=== PATIENT | female | born 1970 | race Caucasian/White ===

== ENCOUNTER → 2022-08-23 | Outpatient (CLI) | LOC: M SOG 08:18 | PROVIDERS: ATTEND Orthopaedic Surgery Hand Surgery | DX: G56.03 Carpal tunnel syndrome, bilateral upper limbs (principal) ==

== ENCOUNTER → 2023-03-23 | Outpatient (REF) | payer OTHER ==
[~2023-03-23] MED LIST: ACET-910 PO; ALBU90AE IH; AMLO1TAB25 PO; CHEL50TA2 PO; CITRTAB18 PO; DAND525C PO; HYDR-3490 PO; IBUP80TA PO; MAGN200T PO; MILK500C PO; MOME13HF8 IN; PROBCAP14 PO; RA V400C PO; VITA500C17 PO; vitamin b1 PO
== END ==
LOC: M SFHCRHEU 10:47
PROVIDERS: ATTEND Internal Medicine Rheumatology
DX: M05.79 Rheumatoid arthritis with rheumatoid factor of multiple sites without organ or systems involvement (principal); R76.8 Other specified abnormal immunological findings in serum; Z79.899 Other long term (current) drug therapy; Z22.7 Latent tuberculosis; Z53.9 Procedure and treatment not carried out, unspecified reason

== ENCOUNTER → 2023-05-04 | Outpatient (REF) | payer OTHER | LOC: M SFHCRHEU 16:51 | PROVIDERS: ATTEND Internal Medicine Rheumatology | DX: Z53.9 Procedure and treatment not carried out, unspecified reason (principal); M05.79 Rheumatoid arthritis with rheumatoid factor of multiple sites without organ or systems involvement; R76.8 Other specified abnormal immunological findings in serum; Z79.899 Other long term (current) drug therapy; Z22.7 Latent tuberculosis ==

== ENCOUNTER → 2023-05-29 | Outpatient (CLI) | payer OTHER | LOC: M PLAIMG 08:42 | PROVIDERS: ATTEND Internal Medicine Infectious Disease | DX: R76.11 Nonspecific reaction to tuberculin skin test without active tuberculosis (principal); M05.79 Rheumatoid arthritis with rheumatoid factor of multiple sites without organ or systems involvement | CPT/HCPCS: 36415; 71046; 86480; G0463 ==

== ENCOUNTER → 2023-07-27 | Outpatient (CLI) | payer OTHER ==
[2023-07-27 09:35] LABS: BASO # 0.1 10^3/uL (0.0-0.2); BASO % 0.7 % (0.0-1.0); EOS # 0.1 10^3/uL (0.0-0.5); HEMATOCRIT 38.5 % (36.0-47.0); HEMOGLOBIN 12.4 g/dl (12.0-15.5); LYMPH # 2.8 10^3/uL (1.5-5.0); LYMPH % 20.4 % (24.0-44.0); MEAN CORPUSCULAR HEMOGLOBIN 27.7 pg (27.0-33.0); MEAN CORPUSCULAR HGB CONC 32.2 g/dl (32.0-36.5); MEAN CORPUSCULAR VOLUME 85.9 fl (80.0-96.0); MONO # 0.9 10^3/uL (0.0-0.8); MONO % 6.8 % (2.0-8.0); NEUTROPHILS # 9.5 10^3/uL (1.5-8.5); NEUTROPHILS % 70.7 % (36.0-66.0); PLATELET COUNT, AUTOMATED 408 10^3/uL (150-450); RED BLOOD COUNT 4.48 10^6/uL (4.00-5.40); WHITE BLOOD COUNT 13.5 10^3/uL (4.0-10.0)
[2023-07-27 09:44] LABS: ERYTHROCYTE SEDIMENTATION RATE 33 mm/hr (0-30)
[2023-07-27 10:04] LABS: ALBUMIN 3.8 G/DL (3.2-5.2); ALKALINE PHOSPHATASE 83 U/L (46-116); ALT/SGPT 20 U/L (7.0-40); AST/SGOT 17 U/L (<34); BILIRUBIN,TOTAL 0.8 MG/DL (0.3-1.2); BLOOD UREA NITROGEN 16 MG/DL (9-23); CALCIUM LEVEL 9.5 MG/DL (8.5-10.1); CARBON DIOXIDE LEVEL 28 MMOL/L (20-31); CHLORIDE LEVEL 107 MMOL/L (98-107); CREATININE FOR GFR 0.65 MG/DL (0.55-1.30); GLOMERULAR FILTRATION RATE > 60.0 (>51); GLUCOSE, FASTING 90 MG/DL (60-100); POTASSIUM SERUM 3.9 MMOL/L (3.5-5.1); SODIUM LEVEL 142 MMOL/L (136-145); TOTAL PROTEIN 6.7 G/DL (5.7-8.2)
== END ==
LOC: M PLALAB 08:30
PROVIDERS: ATTEND Internal Medicine Rheumatology
DX: M05.79 Rheumatoid arthritis with rheumatoid factor of multiple sites without organ or systems involvement (principal); R76.8 Other specified abnormal immunological findings in serum; Z79.899 Other long term (current) drug therapy; Z22.7 Latent tuberculosis

== ENCOUNTER → 2023-08-21 | Outpatient (CLI) | payer OTHER | LOC: M WHC 07:23 | PROVIDERS: ATTEND Family Medicine | DX: Z12.31 Encounter for screening mammogram for malignant neoplasm of breast (principal) ==

== ENCOUNTER → 2023-09-01 | Outpatient (CLI) | payer OTHER ==
[2023-09-01 11:11] LABS: BASO # 0.1 10^3/uL (0.0-0.2); BASO % 0.8 % (0.0-1.0); EOS # 0.2 10^3/uL (0.0-0.5); EOS % 1.9 % (0.0-3.0); HEMATOCRIT 38.4 % (36.0-47.0); HEMOGLOBIN 12.4 g/dl (12.0-15.5); LYMPH % 37.5 % (24.0-44.0); MEAN CORPUSCULAR HEMOGLOBIN 27.5 pg (27.0-33.0); MEAN CORPUSCULAR HGB CONC 32.3 g/dl (32.0-36.5); MEAN CORPUSCULAR VOLUME 85.1 fl (80.0-96.0); MONO # 0.9 10^3/uL (0.0-0.8); MONO % 8.2 % (2.0-8.0); NEUTROPHILS # 5.5 10^3/uL (1.5-8.5); NEUTROPHILS % 51.3 % (36.0-66.0); PLATELET COUNT, AUTOMATED 419 10^3/uL (150-450); RED BLOOD COUNT 4.51 10^6/uL (4.00-5.40); WHITE BLOOD COUNT 10.6 10^3/uL (4.0-10.0)
[2023-09-01 11:38] LABS: ERYTHROCYTE SEDIMENTATION RATE 27 mm/hr (0-30)
[2023-09-01 11:45] LABS: ALKALINE PHOSPHATASE 85 U/L (46-116); ALT/SGPT 20 U/L (7.0-40); AST/SGOT 13 U/L (<34); BILIRUBIN,TOTAL 1.1 MG/DL (0.3-1.2); BLOOD UREA NITROGEN 19 MG/DL (9-23); CALCIUM LEVEL 9.3 MG/DL (8.5-10.1); CARBON DIOXIDE LEVEL 29 MMOL/L (20-31); CHLORIDE LEVEL 104 MMOL/L (98-107); CREATININE FOR GFR 0.62 MG/DL (0.55-1.30); GLOMERULAR FILTRATION RATE > 60.0 (>51); GLUCOSE, FASTING 83 MG/DL (60-100); POTASSIUM SERUM 4.3 MMOL/L (3.5-5.1); SODIUM LEVEL 138 MMOL/L (136-145); TOTAL PROTEIN 6.8 G/DL (5.7-8.2)
== END ==
LOC: M PLALAB 08:36
PROVIDERS: ATTEND Internal Medicine Rheumatology
DX: M05.79 Rheumatoid arthritis with rheumatoid factor of multiple sites without organ or systems involvement (principal); R76.8 Other specified abnormal immunological findings in serum; Z22.7 Latent tuberculosis; Z79.899 Other long term (current) drug therapy

== ENCOUNTER 2023-09-21 07:10 | Outpatient (CLI) | payer OTHER ==
[~2023-09-21] VITALS: Ht 162.6 cm; Wt 114.5 kg
[2023-09-21] VITALS (8 sets, daily range): BP systolic 119–176; BP diastolic 53–82; TEMP 97.2–98.4; O2SAT 96–100
[~2023-09-21 07:10] MED LIST changes: +ALBUTEROL SULFATE 2.5MG/0.5ML INH NEB SOLN INH PRN; +EPINEPHrine INJ 1 MG/ML 1ML AMP IM PRN; +diphenhydrAMINE 50MG/ML VIAL IV PRN; +methylPREDNISolone 125MG 2ML VIAL IV PRN
[2023-09-21] MEDS: ACETAMINOPHEN 650MG PO PRIOR TO INFUSION PO ONE (08:22)
[2023-09-21] MEDS: diphenhydrAMINE 50MG PO PRIOR TO INFUSION PO ONE (08:22)
[2023-09-21] MEDS: inFLIXimab INJECTION 400 MG in NS 210 ML IV ONE (08:53)
== END 2023-09-21 11:10 ==
LOC: M INFU 07:10
PROVIDERS: ATTEND Internal Medicine Rheumatology
DX: M05.79 Rheumatoid arthritis with rheumatoid factor of multiple sites without organ or systems involvement (principal); Z91.041 Radiographic dye allergy status; Z88.5 Allergy status to narcotic agent; Z88.8 Allergy status to other drugs, medicaments and biological substances
CPT/HCPCS: 96413; 96415; J1745

== ENCOUNTER 2023-10-05 10:20 | Outpatient (CLI) | payer OTHER ==
[~2023-10-05] VITALS: Ht 165.1 cm; Wt 115.5 kg
[2023-10-05 10:25] VITALS: BP 140/88; O2SAT 100
[2023-10-05] MEDS: ACETAMINOPHEN 650MG ER TAB (TYLENOL ARTHRITIS) PO ONE (10:31)
[2023-10-05] MEDS: diphenhydrAMINE 50MG PO PRIOR TO INFUSION PO ONE (10:31)
[2023-10-05] MEDS: inFLIXimab INJECTION 400 MG in NS 210 ML IV ONE (11:17)
[2023-10-05 11:35] VITALS: BP 118/82; O2SAT 97
[2023-10-05 11:50] VITALS: BP 116/78; O2SAT 98
[2023-10-05 12:05] VITALS: BP 122/62; O2SAT 100
[2023-10-05 12:50] VITALS: BP 118/64; O2SAT 99
[2023-10-05 13:17] VITALS: BP 110/60; TEMP 98.3; O2SAT 98
== END 2023-10-05 13:27 | disposition home or self-care (01) ==
LOC: M INFU 10:20
PROVIDERS: ATTEND Internal Medicine Rheumatology
DX: M05.79 Rheumatoid arthritis with rheumatoid factor of multiple sites without organ or systems involvement (principal); Z88.8 Allergy status to other drugs, medicaments and biological substances; Z88.5 Allergy status to narcotic agent; Z91.041 Radiographic dye allergy status
CPT/HCPCS: 96413; 96415; J1745

== ENCOUNTER 2023-11-02 10:05 | Outpatient (CLI) | payer OTHER ==
[~2023-11-02] VITALS: Ht 165.1 cm; Wt 116.2 kg
[2023-11-02 10:05] VITALS: BP 112/74; O2SAT 98
[2023-11-02] MEDS: ACETAMINOPHEN 650MG ER TAB (TYLENOL ARTHRITIS) PO ONE (10:24)
[2023-11-02] MEDS: diphenhydrAMINE 50MG PO PRIOR TO INFUSION PO ONE (10:24)
[2023-11-02] MEDS ORDERED: LEUC25TA2 PO (10:30)
[2023-11-02] MEDS ORDERED: METH2.5T48 PO (10:32)
[2023-11-02] MEDS: inFLIXimab INJECTION 400 MG in NS 210 ML IV ONE (10:55)
[2023-11-02 11:30] VITALS: BP 110/64; O2SAT 100
[2023-11-02 12:00] VITALS: BP 117/63; O2SAT 99
[2023-11-02 12:32] VITALS: BP 120/76; O2SAT 99
[2023-11-02 13:00] VITALS: BP 133/63; O2SAT 99
== END 2023-11-02 13:00 ==
LOC: M INFU 10:05
PROVIDERS: ATTEND Internal Medicine Rheumatology
DX: M05.79 Rheumatoid arthritis with rheumatoid factor of multiple sites without organ or systems involvement (principal); Z88.5 Allergy status to narcotic agent; Z88.8 Allergy status to other drugs, medicaments and biological substances; Z91.041 Radiographic dye allergy status
CPT/HCPCS: 96413; 96415; J1745

== ENCOUNTER 2023-11-24 10:12 | Day surgery (SDC) | payer OTHER ==
[~2023-11-24] VITALS: Ht 165.1 cm; Wt 114.6 kg
[~2023-11-24 10:12] MED LIST changes: -ALBUTEROL SULFATE 2.5MG/0.5ML INH NEB SOLN INH PRN; -EPINEPHrine INJ 1 MG/ML 1ML AMP IM PRN; +INFL10VL IV; +LEUC25TA2 PO; +LISI10TA24 PO; +METH2.5T48 PO; +VITA100T28 PO; -diphenhydrAMINE 50MG/ML VIAL IV PRN; -methylPREDNISolone 125MG 2ML VIAL IV PRN
[2023-11-24] MEDS: LIDOCAINE W/EPINEPHRINE 1% 20ML VIAL XX ONE (11:04)
[2023-11-24] MEDS: SODIUM BICARBONATE 8.4% INJ 50MEQ 50ML VIAL XX ONE (11:04)
[2023-11-24 13:12] VITALS: BP 153/72; TEMP 97.4; O2SAT 100
== END 2023-11-24 13:18 | disposition home or self-care (01) ==
LOC: M SDC 10:12
PROVIDERS: ATTEND Orthopaedic Surgery Hand Surgery
DX: G56.02 Carpal tunnel syndrome, left upper limb (principal); Z91.040 Latex allergy status; Z91.041 Radiographic dye allergy status; Z88.5 Allergy status to narcotic agent; Z88.8 Allergy status to other drugs, medicaments and biological substances

== ENCOUNTER → 2023-12-05 | Outpatient (CLI) | payer OTHER ==
[2023-12-05 14:10] LABS: BASO # 0.1 10^3/uL (0.0-0.2); BASO % 1.8 % (0.0-1.0); EOS # 0.4 10^3/uL (0.0-0.5); EOS % 4.7 % (0.0-3.0); HEMATOCRIT 37.2 % (36.0-47.0); HEMOGLOBIN 12.3 g/dl (12.0-15.5); LYMPH # 3.6 10^3/uL (1.5-5.0); LYMPH % 45.8 % (24.0-44.0); MEAN CORPUSCULAR HEMOGLOBIN 28.7 pg (27.0-33.0); MEAN CORPUSCULAR HGB CONC 33.1 g/dl (32.0-36.5); MEAN CORPUSCULAR VOLUME 86.7 fl (80.0-96.0); MONO # 0.9 10^3/uL (0.0-0.8); NEUTROPHILS # 2.9 10^3/uL (1.5-8.5); NEUTROPHILS % 36.6 % (36.0-66.0); PLATELET COUNT, AUTOMATED 341 10^3/uL (150-450); RED BLOOD COUNT 4.29 10^6/uL (4.00-5.40); WHITE BLOOD COUNT 7.9 10^3/uL (4.0-10.0)
[2023-12-05 14:26] LABS: ERYTHROCYTE SEDIMENTATION RATE 18 mm/hr (0-30)
[2023-12-05 14:43] LABS: C REACTIVE PROTEIN QUANTITATIV < 0.40 MG/DL (<1.0)
[2023-12-05 14:44] LABS: ALBUMIN 3.7 G/DL (3.2-5.2); ALKALINE PHOSPHATASE 82 U/L (46-116); ALT/SGPT 25 U/L (7.0-40); AST/SGOT 19 U/L (<34); BILIRUBIN,TOTAL 1.1 MG/DL (0.3-1.2); BLOOD UREA NITROGEN 25 MG/DL (9-23); CALCIUM LEVEL 9.4 MG/DL (8.5-10.1); CARBON DIOXIDE LEVEL 28 MMOL/L (20-31); CHLORIDE LEVEL 104 MMOL/L (98-107); CREATININE FOR GFR 0.52 MG/DL (0.55-1.30); GLOMERULAR FILTRATION RATE > 60.0 (>51); GLUCOSE, FASTING 90 MG/DL (60-100); POTASSIUM SERUM 4.1 MMOL/L (3.5-5.1); SODIUM LEVEL 140 MMOL/L (136-145); TOTAL PROTEIN 6.3 G/DL (5.7-8.2)
== END ==
LOC: M PLALAB 09:17
PROVIDERS: ATTEND Internal Medicine Rheumatology
DX: M05.79 Rheumatoid arthritis with rheumatoid factor of multiple sites without organ or systems involvement (principal); R76.8 Other specified abnormal immunological findings in serum; Z79.899 Other long term (current) drug therapy; Z22.7 Latent tuberculosis

== ENCOUNTER 2023-12-28 09:50 | Outpatient (CLI) | payer OTHER ==
[2023-12-28 09:50] VITALS: BP 117/58; O2SAT 98
[~2023-12-28 09:50] MED LIST changes: -ALBU90AE IH; +ALBU90AE2 IH; +ALBUTEROL SULFATE 2.5MG/0.5ML INH NEB SOLN INH PRN; +EPINEPHrine INJ 1 MG/ML 1ML AMP IM PRN; +diphenhydrAMINE 50MG/ML VIAL IV PRN; +methylPREDNISolone 125MG 2ML VIAL IV PRN
[2023-12-28] MEDS ORDERED: NS 1,000 ML IV SCH (10:00)
[2023-12-28] MEDS: ACETAMINOPHEN 650MG PO PRIOR TO INFUSION PO ONE (10:12)
[2023-12-28] MEDS: diphenhydrAMINE 50MG PO PRIOR TO INFUSION PO ONE (10:12)
[2023-12-28] MEDS: inFLIXimab INJECTION 600 MG in NS 190 ML IV ONE (11:00)
[2023-12-28 11:35] VITALS: BP 130/60; O2SAT 100
[2023-12-28 12:33] VITALS: BP 125/60; O2SAT 100
[2023-12-28 13:10] VITALS: BP 131/63; O2SAT 100
== END 2023-12-28 13:10 ==
LOC: M INFU 09:50
PROVIDERS: ATTEND Internal Medicine Rheumatology
DX: M05.79 Rheumatoid arthritis with rheumatoid factor of multiple sites without organ or systems involvement (principal); Z88.5 Allergy status to narcotic agent; Z88.8 Allergy status to other drugs, medicaments and biological substances; Z91.041 Radiographic dye allergy status; Z91.040 Latex allergy status
CPT/HCPCS: 96413; 96415; J1745

== ENCOUNTER 2024-02-08 08:24 | Outpatient (CLI) | payer OTHER ==
[~2024-02-08] VITALS: Ht 165.1 cm; Wt 117.5 kg
[2024-02-08 08:30] VITALS: BP 165/88; O2SAT 99
[2024-02-08] MEDS ORDERED: CURCPOW XX (08:55)
[2024-02-08] MEDS: ACETAMINOPHEN TAB 650MG DOSE (2X325MG) PO ONE (09:17)
[2024-02-08] MEDS: diphenhydrAMINE 25MG CAP PO ONE (09:17)
[2024-02-08] MEDS: inFLIXimab INJECTION 600 MG in NS 190 ML IV ONE (09:19)
[2024-02-08 09:30] VITALS: BP 132/63; O2SAT 99
[2024-02-08 10:15] VITALS: BP 130/65; O2SAT 99
[2024-02-08 10:45] VITALS: BP 145/73; O2SAT 99
[2024-02-08 11:25] VITALS: BP 131/67; O2SAT 100
== END 2024-02-08 11:25 ==
LOC: M INFU 08:24
PROVIDERS: ATTEND Internal Medicine Rheumatology
DX: M05.79 Rheumatoid arthritis with rheumatoid factor of multiple sites without organ or systems involvement (principal); Z88.5 Allergy status to narcotic agent; Z88.8 Allergy status to other drugs, medicaments and biological substances; Z91.041 Radiographic dye allergy status; Z91.040 Latex allergy status
CPT/HCPCS: 96413; 96415; J1745

== ENCOUNTER → 2024-02-16 | Outpatient (CLI) | payer OTHER ==
[~2024-02-16] MED LIST changes: -ALBUTEROL SULFATE 2.5MG/0.5ML INH NEB SOLN INH PRN; +CURCPOW XX; -EPINEPHrine INJ 1 MG/ML 1ML AMP IM PRN; -diphenhydrAMINE 50MG/ML VIAL IV PRN; -methylPREDNISolone 125MG 2ML VIAL IV PRN
[2024-02-16 13:49] LABS: BASO # 0.1 10^3/uL (0.0-0.2); BASO % 1.8 % (0.0-1.0); EOS # 0.2 10^3/uL (0.0-0.5); EOS % 2.2 % (0.0-3.0); HEMATOCRIT 38.4 % (36.0-47.0); HEMOGLOBIN 12.8 g/dl (12.0-15.5); LYMPH % 44.5 % (24.0-44.0); MEAN CORPUSCULAR HEMOGLOBIN 29.3 pg (27.0-33.0); MEAN CORPUSCULAR HGB CONC 33.3 g/dl (32.0-36.5); MEAN CORPUSCULAR VOLUME 87.9 fl (80.0-96.0); MONO # 0.6 10^3/uL (0.0-0.8); MONO % 8.5 % (2.0-8.0); NEUTROPHILS # 2.9 10^3/uL (1.5-8.5); NEUTROPHILS % 42.9 % (36.0-66.0); PLATELET COUNT, AUTOMATED 309 10^3/uL (150-450); RED BLOOD COUNT 4.37 10^6/uL (4.00-5.40); WHITE BLOOD COUNT 6.7 10^3/uL (4.0-10.0)
[2024-02-16 13:57] LABS: ERYTHROCYTE SEDIMENTATION RATE 20 mm/hr (0-30)
[2024-02-16 14:17] LABS: C REACTIVE PROTEIN QUANTITATIV < 0.40 MG/DL (<1.0)
[2024-02-16 14:19] LABS: ALBUMIN 4.1 G/DL (3.2-5.2); ALKALINE PHOSPHATASE 91 U/L (46-116); ALT/SGPT 24 U/L (7.0-40); AST/SGOT 19 U/L (<34); BILIRUBIN,TOTAL 1.2 MG/DL (0.3-1.2); BLOOD UREA NITROGEN 18 MG/DL (9-23); CALCIUM LEVEL 9.6 MG/DL (8.5-10.1); CARBON DIOXIDE LEVEL 28 MMOL/L (20-31); CHLORIDE LEVEL 106 MMOL/L (98-107); CREATININE FOR GFR 0.53 MG/DL (0.55-1.30); GLOMERULAR FILTRATION RATE > 60.0 (>51); GLUCOSE, FASTING 84 MG/DL (60-100); POTASSIUM SERUM 4.2 MMOL/L (3.5-5.1); SODIUM LEVEL 140 MMOL/L (136-145); TOTAL PROTEIN 6.9 G/DL (5.7-8.2)
== END ==
LOC: M PLALAB 09:43
PROVIDERS: ATTEND Internal Medicine Rheumatology
DX: M05.79 Rheumatoid arthritis with rheumatoid factor of multiple sites without organ or systems involvement (principal); R76.8 Other specified abnormal immunological findings in serum; Z79.899 Other long term (current) drug therapy; Z22.7 Latent tuberculosis

== ENCOUNTER → 2024-03-04 | Outpatient (REF) | payer OTHER | LOC: M SFHCRHEU 08:33 | PROVIDERS: ATTEND Internal Medicine Rheumatology | DX: M05.79 Rheumatoid arthritis with rheumatoid factor of multiple sites without organ or systems involvement (principal) ==

== ENCOUNTER 2024-03-22 09:40 | Outpatient (CLI) | payer OTHER ==
[~2024-03-22] VITALS: Ht 165.1 cm; Wt 115.9 kg
[~2024-03-22 09:40] MED LIST changes: +ALBUTEROL SULFATE 2.5MG/0.5ML INH NEB SOLN INH PRN; +EPINEPHrine INJ 1 MG/ML 1ML AMP IM PRN; +diphenhydrAMINE 50MG/ML VIAL IV PRN; +methylPREDNISolone 125MG 2ML VIAL IV PRN
[2024-03-22 10:00] VITALS: BP 135/71; O2SAT 97
[2024-03-22] MEDS: ACETAMINOPHEN 650MG PO PRIOR TO INFUSION PO ONE (10:05)
[2024-03-22] MEDS: diphenhydrAMINE 50MG PO PRIOR TO INFUSION PO ONE (10:05)
[2024-03-22] MEDS: inFLIXimab INJECTION 600 MG in NS 190 ML IV ONE (11:02)
[2024-03-22 12:00] VITALS: BP 134/74; O2SAT 100
[2024-03-22 13:05] VITALS: BP 131/71; O2SAT 100
== END 2024-03-22 13:05 ==
LOC: M INFU 09:40
PROVIDERS: ATTEND Internal Medicine Rheumatology
DX: M05.79 Rheumatoid arthritis with rheumatoid factor of multiple sites without organ or systems involvement (principal); Z88.5 Allergy status to narcotic agent; Z88.8 Allergy status to other drugs, medicaments and biological substances; Z91.040 Latex allergy status; Z91.041 Radiographic dye allergy status
CPT/HCPCS: 96413; 96415; J1745

== ENCOUNTER 2024-05-03 09:45 | Outpatient (CLI) | payer OTHER ==
[~2024-05-03] VITALS: Ht 165.1 cm; Wt 117.2 kg
[2024-05-03 10:00] VITALS: BP 140/67; O2SAT 98
[2024-05-03] MEDS: [UNRECOGNIZED DRUG - OTHER] PO ONE (10:13)
[2024-05-03] MEDS: diphenhydrAMINE 50MG PO PRIOR TO INFUSION PO ONE (10:13)
[2024-05-03] MEDS: ACETAMINOPHEN 650 MG PO ONE (10:13)
[2024-05-03] MEDS: inFLIXimab INJECTION 600 MG in NS 190 ML IV ONE (11:00)
[2024-05-03 11:20] VITALS: BP 152/71; O2SAT 99
== END 2024-05-03 12:10 ==
LOC: M INFU 09:45
PROVIDERS: ATTEND Internal Medicine Rheumatology
DX: M05.79 Rheumatoid arthritis with rheumatoid factor of multiple sites without organ or systems involvement (principal); Z88.5 Allergy status to narcotic agent; Z88.8 Allergy status to other drugs, medicaments and biological substances; Z91.041 Radiographic dye allergy status; Z91.040 Latex allergy status
CPT/HCPCS: 96413; J1745

== ENCOUNTER → 2024-05-30 | Outpatient (CLI) | payer OTHER ==
[~2024-05-30] MED LIST changes: -ALBUTEROL SULFATE 2.5MG/0.5ML INH NEB SOLN INH PRN; -EPINEPHrine INJ 1 MG/ML 1ML AMP IM PRN; -diphenhydrAMINE 50MG/ML VIAL IV PRN; -methylPREDNISolone 125MG 2ML VIAL IV PRN
[2024-05-30 14:54] LABS: BASO # 0.1 10^3/uL (0.0-0.2); BASO % 1.2 % (0.0-1.0); EOS # 0.2 10^3/uL (0.0-0.5); EOS % 2.2 % (0.0-3.0); HEMATOCRIT 39.4 % (36.0-47.0); HEMOGLOBIN 13.1 g/dl (12.0-15.5); LYMPH # 2.7 10^3/uL (1.5-5.0); LYMPH % 33.3 % (24.0-44.0); MEAN CORPUSCULAR HEMOGLOBIN 29.4 pg (27.0-33.0); MEAN CORPUSCULAR HGB CONC 33.2 g/dl (32.0-36.5); MEAN CORPUSCULAR VOLUME 88.5 fl (80.0-96.0); MONO # 0.7 10^3/uL (0.0-0.8); MONO % 8.9 % (2.0-8.0); NEUTROPHILS # 4.4 10^3/uL (1.5-8.5); NEUTROPHILS % 54.2 % (36.0-66.0); PLATELET COUNT, AUTOMATED 401 10^3/uL (150-450); RED BLOOD COUNT 4.45 10^6/uL (4.00-5.40); WHITE BLOOD COUNT 8.2 10^3/uL (4.0-10.0)
[2024-05-30 15:01] LABS: C REACTIVE PROTEIN QUANTITATIV < 0.40 MG/DL (<1.0); ERYTHROCYTE SEDIMENTATION RATE 22 mm/hr (0-30)
[2024-05-30 15:02] LABS: ALKALINE PHOSPHATASE 101 U/L (35-104); ALT/SGPT 21 U/L (7.0-40); AST/SGOT 14 U/L (<34); BILIRUBIN,TOTAL 1.2 MG/DL (0.3-1.2); BLOOD UREA NITROGEN 18 MG/DL (9-23); CALCIUM LEVEL 10.2 MG/DL (8.5-10.1); CARBON DIOXIDE LEVEL 28 MMOL/L (20-31); CHLORIDE LEVEL 101 MMOL/L (98-107); CREATININE FOR GFR 0.58 MG/DL (0.55-1.30); GLOMERULAR FILTRATION RATE > 60.0 (>51); GLUCOSE, FASTING 95 MG/DL (60-100); SODIUM LEVEL 140 MMOL/L (136-145); TOTAL PROTEIN 7.3 G/DL (5.7-8.2)
== END ==
LOC: M PLALAB 10:15
PROVIDERS: ATTEND Internal Medicine Rheumatology
DX: M05.79 Rheumatoid arthritis with rheumatoid factor of multiple sites without organ or systems involvement (principal)

== ENCOUNTER 2024-06-14 09:40 | Outpatient (CLI) | payer OTHER ==
[~2024-06-14] VITALS: Ht 165.1 cm; Wt 117.7 kg
[2024-06-14 09:40] VITALS: BP 140/80; O2SAT 98
[~2024-06-14 09:40] MED LIST changes: +ALBUTEROL SULFATE 2.5MG/0.5ML INH NEB SOLN INH PRN; +EPINEPHrine INJ 1 MG/ML 1ML AMP IM PRN; +diphenhydrAMINE 50MG/ML VIAL IV PRN; +methylPREDNISolone 125MG 2ML VIAL IV PRN
[2024-06-14] MEDS: diphenhydrAMINE 50MG PO PRIOR TO INFUSION PO ONE (09:42)
[2024-06-14] MEDS: ACETAMINOPHEN 650MG ER TAB (TYLENOL ARTHRITIS) PO ONE (09:43)
[2024-06-14] MEDS: inFLIXimab INJECTION 700 MG in NS 180 ML IV ONE (10:20)
[2024-06-14 10:39] VITALS: BP 132/72; O2SAT 99
[2024-06-14 10:40] VITALS: BP 132/72; TEMP 98.6; O2SAT 99
[2024-06-14 11:25] VITALS: BP 132/72; TEMP 97.3; O2SAT 100
== END 2024-06-14 11:30 ==
LOC: M INFU 09:40
PROVIDERS: ATTEND Internal Medicine Rheumatology
DX: M05.79 Rheumatoid arthritis with rheumatoid factor of multiple sites without organ or systems involvement (principal); Z88.5 Allergy status to narcotic agent; Z88.8 Allergy status to other drugs, medicaments and biological substances; Z91.040 Latex allergy status; Z91.041 Radiographic dye allergy status
CPT/HCPCS: 96413; J1745

== ENCOUNTER 2024-07-19 09:43 | Outpatient (CLI) | payer OTHER ==
[~2024-07-19] VITALS: Ht 165.1 cm; Wt 119.0 kg
[~2024-07-19 09:43] MED LIST changes: -RA V400C PO; +VITA268C PO
[2024-07-19 10:00] VITALS: BP 111/56; O2SAT 10
[2024-07-19] MEDS: ACETAMINOPHEN 650MG ER TAB (TYLENOL ARTHRITIS) PO ONE (10:05)
[2024-07-19] MEDS: diphenhydrAMINE 50MG PO PRIOR TO INFUSION PO ONE (10:05)
[2024-07-19] MEDS: inFLIXimab INJECTION 600 MG in NS 190 ML IV ONE (10:57)
[2024-07-19 12:00] VITALS: BP 130/73; O2SAT 100
== END 2024-07-19 12:00 | disposition home or self-care (01) ==
LOC: M INFU 09:43
PROVIDERS: ATTEND Internal Medicine Rheumatology
DX: M05.79 Rheumatoid arthritis with rheumatoid factor of multiple sites without organ or systems involvement (principal); Z88.5 Allergy status to narcotic agent; Z88.8 Allergy status to other drugs, medicaments and biological substances; Z91.040 Latex allergy status; Z91.041 Radiographic dye allergy status
CPT/HCPCS: 96413; J1745

== ENCOUNTER 2024-08-23 09:34 | Outpatient (CLI) | payer OTHER ==
[~2024-08-23] VITALS: Ht 165.1 cm; Wt 119.5 kg
[~2024-08-23 09:34] MED LIST changes: -ALBUTEROL SULFATE 2.5MG/0.5ML INH NEB SOLN INH PRN; -EPINEPHrine INJ 1 MG/ML 1ML AMP IM PRN; -diphenhydrAMINE 50MG/ML VIAL IV PRN; -methylPREDNISolone 125MG 2ML VIAL IV PRN
[2024-08-23 10:00] VITALS: BP 144/78; O2SAT 99
[2024-08-23] MEDS: diphenhydrAMINE 50MG PO PRIOR TO INFUSION PO ONE (10:08)
[2024-08-23] MEDS: ACETAMINOPHEN 650MG ER TAB (TYLENOL ARTHRITIS) PO ONE (10:08)
[2024-08-23] MEDS: inFLIXimab INJECTION 700 MG in NS 180 ML IV ONE (11:06)
[2024-08-23 11:39] VITALS: BP 125/59; TEMP 97.3; O2SAT 99
[2024-08-23 12:10] VITALS: BP 123/60; TEMP 97.6; O2SAT 97
[2024-08-23 13:09] VITALS: BP 137/75; TEMP 97.3; O2SAT 100
== END 2024-08-23 13:15 ==
LOC: M INFU 09:34
PROVIDERS: ATTEND Internal Medicine Rheumatology
DX: M06.9 Rheumatoid arthritis, unspecified (principal); Z88.5 Allergy status to narcotic agent; Z88.8 Allergy status to other drugs, medicaments and biological substances; Z91.040 Latex allergy status; Z91.041 Radiographic dye allergy status
CPT/HCPCS: 96413; 96415; J1745

== ENCOUNTER → 2024-09-17 | Outpatient (CLI) | payer OTHER ==
[2024-09-17 17:09] LABS: BASO # 0.1 10^3/uL (0.0-0.2); BASO % 1.3 % (0.0-1.0); EOS # 0.2 10^3/uL (0.0-0.5); EOS % 2.5 % (0.0-3.0); HEMATOCRIT 40.7 % (36.0-47.0); HEMOGLOBIN 13.7 g/dl (12.0-15.5); LYMPH % 44.3 % (24.0-44.0); MEAN CORPUSCULAR HEMOGLOBIN 29.5 pg (27.0-33.0); MEAN CORPUSCULAR HGB CONC 33.7 g/dl (32.0-36.5); MEAN CORPUSCULAR VOLUME 87.7 fl (80.0-96.0); MONO # 0.7 10^3/uL (0.0-0.8); MONO % 8.1 % (2.0-8.0); NEUTROPHILS # 3.8 10^3/uL (1.5-8.5); NEUTROPHILS % 42.7 % (36.0-66.0); PLATELET COUNT, AUTOMATED 421 10^3/uL (150-450); RED BLOOD COUNT 4.64 10^6/uL (4.00-5.40); WHITE BLOOD COUNT 8.9 10^3/uL (4.0-10.0)
[2024-09-17 17:15] LABS: ERYTHROCYTE SEDIMENTATION RATE 29 mm/hr (0-30)
[2024-09-17 17:39] LABS: ALBUMIN 4.3 G/DL (3.2-5.2); ALKALINE PHOSPHATASE 104 U/L (35-104); ALT/SGPT 36 U/L (7.0-40); AST/SGOT 34 U/L (<34); BILIRUBIN,TOTAL 1.3 MG/DL (0.3-1.2); BLOOD UREA NITROGEN 17 MG/DL (9-23); C REACTIVE PROTEIN QUANTITATIV < 0.50 MG/DL (<1.0); CALCIUM LEVEL 10.1 MG/DL (8.5-10.1); CARBON DIOXIDE LEVEL 28 MMOL/L (20-31); CHLORIDE LEVEL 101 MMOL/L (98-107); CREATININE FOR GFR 0.52 MG/DL (0.55-1.30); GLOMERULAR FILTRATION RATE > 60.0 (>51); GLUCOSE, FASTING 84 MG/DL (60-100); POTASSIUM SERUM 4.1 MMOL/L (3.5-5.1); SODIUM LEVEL 138 MMOL/L (136-145); TOTAL PROTEIN 7.5 G/DL (5.7-8.2)
== END ==
LOC: M PLALAB 12:40
PROVIDERS: ATTEND Internal Medicine Rheumatology
DX: M05.79 Rheumatoid arthritis with rheumatoid factor of multiple sites without organ or systems involvement (principal)

== ENCOUNTER 2024-09-27 09:50 | Outpatient (CLI) | payer OTHER ==
[~2024-09-27] VITALS: Ht 165.1 cm; Wt 119.0 kg
[~2024-09-27 09:50] MED LIST changes: +ALBUTEROL SULFATE 2.5MG/0.5ML INH NEB SOLN INH PRN; +EPINEPHrine INJ 1 MG/ML 1ML AMP IM PRN; +diphenhydrAMINE 50MG/ML VIAL IV PRN; +methylPREDNISolone 125MG 2ML VIAL IV PRN
[2024-09-27 09:55] VITALS: BP 100/50; O2SAT 95
[2024-09-27] MEDS: ACETAMINOPHEN 650MG PO PRIOR TO INFUSION PO ONE (10:11)
[2024-09-27] MEDS: diphenhydrAMINE 50MG PO PRIOR TO INFUSION PO ONE (10:11)
[2024-09-27] MEDS: inFLIXimab INJECTION 700 MG in NS 180 ML IV ONE (10:52)
[2024-09-27 11:15] VITALS: BP 119/58; TEMP 97.3; O2SAT 98
[2024-09-27 12:00] VITALS: BP 114/67; O2SAT 100
== END 2024-09-27 12:10 ==
LOC: M INFU 09:50
PROVIDERS: ATTEND Internal Medicine Rheumatology
DX: M05.79 Rheumatoid arthritis with rheumatoid factor of multiple sites without organ or systems involvement (principal); Z88.5 Allergy status to narcotic agent; Z91.040 Latex allergy status; Z91.041 Radiographic dye allergy status
CPT/HCPCS: 96413; J1745

== ENCOUNTER 2024-11-15 08:34 | Outpatient (CLI) | payer OTHER ==
[~2024-11-15] VITALS: Ht 165.1 cm; Wt 102.5 kg
[2024-11-15 08:00] VITALS: BP 146/70; O2SAT 99
[~2024-11-15 08:34] MED LIST changes: +ALBUTEROL SULFATE 2.5MG/0.5ML INH CONCENTRATE NEB SOLN INH PRN; -ALBUTEROL SULFATE 2.5MG/0.5ML INH NEB SOLN INH PRN
[2024-11-15] MEDS: ACETAMINOPHEN 650MG ER TAB (TYLENOL ARTHRITIS) PO ONE (08:55)
[2024-11-15] MEDS: diphenhydrAMINE 50MG PO PRIOR TO INFUSION PO ONE (08:55)
[2024-11-15] MEDS: inFLIXimab INJECTION 700 MG in NS 180 ML IV ONE (09:56)
[2024-11-15 10:42] VITALS: BP 116/56; O2SAT 100
[2024-11-15 11:20] VITALS: BP 108/53; O2SAT 98
[2024-11-15 11:55] VITALS: BP 141/66; O2SAT 98
== END 2024-11-15 12:00 ==
LOC: M INFU 08:34
PROVIDERS: ATTEND Internal Medicine Rheumatology
DX: M05.79 Rheumatoid arthritis with rheumatoid factor of multiple sites without organ or systems involvement (principal); Z88.5 Allergy status to narcotic agent; Z88.8 Allergy status to other drugs, medicaments and biological substances; Z91.040 Latex allergy status; Z91.041 Radiographic dye allergy status
CPT/HCPCS: 96365; 96366; J1745

== ENCOUNTER 2025-01-14 09:05 | Outpatient (CLI) | payer OTHER ==
[~2025-01-14] VITALS: Ht 165.1 cm; Wt 120.9 kg
[~2025-01-14 09:05] MED LIST changes: +ALBUTEROL SULFATE 2.5 MG/0.5 ML INH CONCENTRATE NEB SOLN INH PRN; -ALBUTEROL SULFATE 2.5MG/0.5ML INH CONCENTRATE NEB SOLN INH PRN; +diphenhydrAMINE 50 MG/ML VIAL IV PRN; -diphenhydrAMINE 50MG/ML VIAL IV PRN; -methylPREDNISolone 125MG 2ML VIAL IV PRN
[2025-01-14] MEDS ORDERED: NS (Normal Saline) 0.9% 1,000 ML IV SCH (09:30)
[2025-01-14 09:40] VITALS: BP 125/60; O2SAT 97
[2025-01-14] MEDS: ACETAMINOPHEN 650MG PO PRIOR TO INFUSION PO ONE (09:52)
[2025-01-14] MEDS: diphenhydrAMINE 50MG PO PRIOR TO INFUSION PO ONE (09:52)
[2025-01-14] MEDS: inFLIXimab INJECTION 700 MG in NS 180 ML IV ONE (10:41)
[2025-01-14 11:00] VITALS: BP 117/59; O2SAT 98
[2025-01-14 11:30] VITALS: BP 122/61; O2SAT 98
[2025-01-14 12:00] VITALS: BP 114/58; O2SAT 98
[2025-01-14 12:45] VITALS: BP 105/66; O2SAT 100
== END 2025-01-14 12:45 ==
LOC: M INFU 09:05
PROVIDERS: ATTEND Internal Medicine Rheumatology
DX: M05.79 Rheumatoid arthritis with rheumatoid factor of multiple sites without organ or systems involvement (principal); Z88.5 Allergy status to narcotic agent; Z88.8 Allergy status to other drugs, medicaments and biological substances; Z91.040 Latex allergy status
CPT/HCPCS: 96413; 96415; J1745

== ENCOUNTER → 2025-01-25 | Outpatient (CLI) | payer OTHER ==
[~2025-01-25] MED LIST changes: -ALBUTEROL SULFATE 2.5 MG/0.5 ML INH CONCENTRATE NEB SOLN INH PRN; -EPINEPHrine INJ 1 MG/ML 1ML AMP IM PRN; -diphenhydrAMINE 50 MG/ML VIAL IV PRN
[2025-01-25 10:15] LABS: BASO # 0.2 10^3/uL (0.0-0.2); BASO % 2.0 % (0.0-1.0); EOS # 0.5 10^3/uL (0.0-0.5); EOS % 6.3 % (0.0-3.0); LYMPH # 3.2 10^3/uL (1.5-5.0); LYMPH % 40.1 % (24.0-44.0); MONO # 0.6 10^3/uL (0.0-0.8); MONO % 7.9 % (2.0-8.0); NEUTROPHILS # 3.5 10^3/uL (1.5-8.5); NEUTROPHILS % 43.4 % (36.0-66.0); PLATELET COUNT, AUTOMATED 361 10^3/uL (150-450)
[2025-01-25 10:32] LABS: ERYTHROCYTE SEDIMENTATION RATE 25 mm/hr (0-30)
[2025-01-25 10:40] LABS: C REACTIVE PROTEIN QUANTITATIV < 0.50 MG/DL (<1.0)
[2025-01-25 10:41] LABS: ALT/SGPT 26 U/L (7.0-40); AST/SGOT 25 U/L (<34); CALCIUM LEVEL 10.0 MG/DL (8.5-10.1); CARBON DIOXIDE LEVEL 28 MMOL/L (20-31); CHLORIDE LEVEL 102 MMOL/L (98-107); CREATININE FOR GFR 0.54 MG/DL (0.55-1.30); GLOMERULAR FILTRATION RATE > 90.0 (>51); POTASSIUM SERUM 4.0 MMOL/L (3.5-5.1); SODIUM LEVEL 141 MMOL/L (136-145)
== END ==
LOC: M RAD 08:37
PROVIDERS: ATTEND Internal Medicine Rheumatology
DX: R76.11 Nonspecific reaction to tuberculin skin test without active tuberculosis (principal); M05.79 Rheumatoid arthritis with rheumatoid factor of multiple sites without organ or systems involvement

== ENCOUNTER → 2025-02-12 | Outpatient (CLI) | payer OTHER | LOC: M WHC 14:05 | PROVIDERS: ATTEND Family Medicine | DX: N63.10 Unspecified lump in the right breast, unspecified quadrant (principal); N63.20 Unspecified lump in the left breast, unspecified quadrant; R92.323 Mammographic fibroglandular density, bilateral breasts | CPT/HCPCS: 77066; G0279 ==

== ENCOUNTER 2025-02-13 08:52 | Outpatient (CLI) | payer OTHER ==
[~2025-02-13] VITALS: Ht 165.1 cm; Wt 119.2 kg
[2025-02-13 08:50] VITALS: BP 123/68; O2SAT 99
[~2025-02-13 08:52] MED LIST changes: +ALBUTEROL SULFATE 2.5 MG/0.5 ML INH CONCENTRATE NEB SOLN INH PRN; +EPINEPHrine INJ 1 MG/ML 1ML AMP IM PRN; +diphenhydrAMINE 50 MG/ML VIAL IV PRN
[2025-02-13] MEDS: diphenhydrAMINE 50MG PO PRIOR TO INFUSION PO ONE (08:54)
[2025-02-13] MEDS: ACETAMINOPHEN 650 MG ER TAB PO PRN (08:54)
[2025-02-13] MEDS: inFLIXimab INJECTION 700 MG in NS 180 ML IV ONE (09:22)
[2025-02-13 11:20] VITALS: BP 112/59; O2SAT 100
== END 2025-02-13 11:25 ==
LOC: M INFU 08:52
PROVIDERS: ATTEND Internal Medicine
DX: M05.79 Rheumatoid arthritis with rheumatoid factor of multiple sites without organ or systems involvement (principal); Z88.5 Allergy status to narcotic agent; Z88.8 Allergy status to other drugs, medicaments and biological substances; Z91.040 Latex allergy status
CPT/HCPCS: 96413; 96415; J1745

== ENCOUNTER 2025-03-24 10:43 | Outpatient (CLI) | payer OTHER ==
[~2025-03-24] VITALS: Ht 165.1 cm; Wt 115.4 kg
[~2025-03-24 10:43] MED LIST changes: -ALBUTEROL SULFATE 2.5 MG/0.5 ML INH CONCENTRATE NEB SOLN INH PRN; -EPINEPHrine INJ 1 MG/ML 1ML AMP IM PRN; -diphenhydrAMINE 50 MG/ML VIAL IV PRN
[2025-03-24 10:55] VITALS: BP 113/58; O2SAT 100
[2025-03-24] MEDS: ACETAMINOPHEN 650 MG ER TAB PO PRN (11:07)
[2025-03-24] MEDS: diphenhydrAMINE 50MG PO PRIOR TO INFUSION PO ONE (11:07)
[2025-03-24] MEDS: inFLIXimab INJECTION 700 MG in NS 180 ML IV ONE (11:38)
[2025-03-24 12:51] VITALS: BP 140/84; O2SAT 100
== END 2025-03-24 12:50 ==
LOC: M INFU 10:43
PROVIDERS: ATTEND Internal Medicine
DX: M05.79 Rheumatoid arthritis with rheumatoid factor of multiple sites without organ or systems involvement (principal); Z88.5 Allergy status to narcotic agent; Z88.8 Allergy status to other drugs, medicaments and biological substances; Z91.040 Latex allergy status; Z91.041 Radiographic dye allergy status
CPT/HCPCS: 96413; J1745

== ENCOUNTER 2025-04-21 10:37 | Outpatient (CLI) | payer OTHER ==
[~2025-04-21] VITALS: Ht 165.1 cm; Wt 120.0 kg
[~2025-04-21 10:37] MED LIST changes: +ALBUTEROL SULFATE 2.5 MG/0.5 ML INH CONCENTRATE NEB SOLN INH PRN; +EPINEPHrine INJ 1 MG/ML 1ML AMP IM PRN; +diphenhydrAMINE 50 MG/ML VIAL IV PRN
[2025-04-21 11:05] VITALS: BP 113/67; O2SAT 97
[2025-04-21] MEDS: diphenhydrAMINE 50MG PO PRIOR TO INFUSION PO ONE (11:19)
[2025-04-21] MEDS: ACETAMINOPHEN 650 MG ER TAB PO ONE (11:19)
[2025-04-21] MEDS: inFLIXimab INJECTION 700 MG in NS 180 ML IV ONE (12:04)
[2025-04-21 13:10] VITALS: BP 132/73; TEMP 36.7; O2SAT 100
== END 2025-04-21 13:10 | disposition home or self-care (01) ==
LOC: M INFU 10:37
PROVIDERS: ATTEND Internal Medicine
DX: M05.79 Rheumatoid arthritis with rheumatoid factor of multiple sites without organ or systems involvement (principal); Z88.5 Allergy status to narcotic agent; Z88.8 Allergy status to other drugs, medicaments and biological substances; Z91.040 Latex allergy status; Z91.041 Radiographic dye allergy status
CPT/HCPCS: 96413; J1745

== ENCOUNTER → 2025-04-25 | Outpatient (CLI) | payer OTHER ==
[~2025-04-25] MED LIST changes: -ALBUTEROL SULFATE 2.5 MG/0.5 ML INH CONCENTRATE NEB SOLN INH PRN; -EPINEPHrine INJ 1 MG/ML 1ML AMP IM PRN; -diphenhydrAMINE 50 MG/ML VIAL IV PRN
[2025-04-25 10:12] LABS: BASO # 0.1 10^3/uL (0.0-0.2); BASO % 1.3 % (0.0-1.0); EOS # 0.2 10^3/uL (0.0-0.5); EOS % 2.8 % (0.0-3.0); LYMPH # 3.3 10^3/uL (1.5-5.0); LYMPH % 44.2 % (24.0-44.0); MONO # 0.5 10^3/uL (0.0-0.8); MONO % 7.2 % (2.0-8.0); NEUTROPHILS # 3.3 10^3/uL (1.5-8.5); NEUTROPHILS % 44.2 % (36.0-66.0); PLATELET COUNT, AUTOMATED 396 10^3/uL (150-450)
[2025-04-25 10:15] LABS: C REACTIVE PROTEIN QUANTITATIV < 0.50 MG/DL (<1.0)
[2025-04-25 10:16] LABS: ALT/SGPT 25 U/L (7.0-40); AST/SGOT 21 U/L (<34); CALCIUM LEVEL 9.7 MG/DL (8.5-10.1); CARBON DIOXIDE LEVEL 26 MMOL/L (20-31); CHLORIDE LEVEL 105 MMOL/L (98-107); CREATININE FOR GFR 0.58 MG/DL (0.55-1.30); GLOMERULAR FILTRATION RATE > 90.0 (>51); POTASSIUM SERUM 4.3 MMOL/L (3.5-5.1); SODIUM LEVEL 143 MMOL/L (136-145)
[2025-04-25 10:25] LABS: ERYTHROCYTE SEDIMENTATION RATE 24 mm/hr (0-30)
== END ==
LOC: M PLALAB 07:59
PROVIDERS: ATTEND Internal Medicine Rheumatology
DX: M05.79 Rheumatoid arthritis with rheumatoid factor of multiple sites without organ or systems involvement (principal); R76.11 Nonspecific reaction to tuberculin skin test without active tuberculosis; Z79.899 Other long term (current) drug therapy

== ENCOUNTER 2025-05-29 08:09 | Outpatient (CLI) | payer OTHER ==
[2025-04-21 13:10] VITALS: TEMP 36.7
[~2025-05-29] VITALS: Ht 165.1 cm; Wt 114.1 kg
[~2025-05-29 08:09] MED LIST changes: +ALBUTEROL SULFATE 2.5 MG/0.5 ML INH CONCENTRATE NEB SOLN INH PRN; +EPINEPHrine INJ 1 MG/ML 1ML AMP IM PRN; +diphenhydrAMINE 50 MG/ML VIAL IV PRN
[2025-05-29] MEDS: ACETAMINOPHEN 650 MG ER TAB PO ONE (08:24)
[2025-05-29] MEDS: diphenhydrAMINE 50MG PO PRIOR TO INFUSION PO ONE (08:24)
[2025-05-29 08:30] VITALS: BP 115/58; O2SAT 98
[2025-05-29] MEDS: inFLIXimab INJECTION 700 MG in NS 180 ML IV ONE (09:24)
[2025-05-29 10:40] VITALS: BP 134/73; O2SAT 100
== END 2025-05-29 10:40 | disposition home or self-care (01) ==
LOC: M INFU 08:09
PROVIDERS: ATTEND Internal Medicine Rheumatology
DX: M05.79 Rheumatoid arthritis with rheumatoid factor of multiple sites without organ or systems involvement (principal); Z88.5 Allergy status to narcotic agent; Z88.8 Allergy status to other drugs, medicaments and biological substances; Z91.041 Radiographic dye allergy status
CPT/HCPCS: 96413; J1745

== ENCOUNTER 2025-06-26 08:48 | Outpatient (CLI) | payer OTHER ==
[2025-04-21 13:10] VITALS: TEMP 36.7
[~2025-06-26] VITALS: Ht 165.1 cm; Wt 111.0 kg
[2025-06-26 09:20] VITALS: BP 121/55; O2SAT 98
[2025-06-26] MEDS: ACETAMINOPHEN 650 MG ER TAB PO ONE (09:37)
[2025-06-26] MEDS: diphenhydrAMINE 50MG PO PRIOR TO INFUSION PO ONE (09:37)
[2025-06-26] MEDS: inFLIXimab INJECTION 700 MG in NS 180 ML IV ONE (10:00)
[2025-06-26 10:15] VITALS: BP 98/55; O2SAT 100
[2025-06-26 10:45] VITALS: BP 105/64; O2SAT 100
[2025-06-26 11:15] VITALS: BP 112/50; O2SAT 100
[2025-06-26 11:55] VITALS: BP 130/59; O2SAT 100
== END 2025-06-26 12:10 | disposition home or self-care (01) ==
LOC: M INFU 08:48
PROVIDERS: ATTEND Internal Medicine Rheumatology
DX: M05.79 Rheumatoid arthritis with rheumatoid factor of multiple sites without organ or systems involvement (principal); Z88.5 Allergy status to narcotic agent; Z88.8 Allergy status to other drugs, medicaments and biological substances; Z91.040 Latex allergy status; Z91.041 Radiographic dye allergy status
CPT/HCPCS: 96413; 96415; J1745